=== PATIENT | female | born 1985 | race Caucasian/White ===

== ENCOUNTER 2022-06-20 17:32 | Emergency (ER) | payer OTHER ==
[~2022-06-20] VITALS: Ht 165.1 cm; Wt 83.9 kg
[2022-06-20] MEDS ORDERED: LASIX20 MG PO (21:15)
[2022-06-20] MEDS ORDERED: ALDACTONE25 MG PO (21:15)
== END 2022-06-20 23:50 | disposition home or self-care (01) ==
LOC: ED 17:32
DX: S80.01XA Contusion of right knee, initial encounter (principal); Z88.5 Allergy status to narcotic agent; Z91.040 Latex allergy status; W01.0XXA Fall on same level from slipping, tripping and stumbling without subsequent striking against object, initial encounter; Y99.0 Civilian activity done for income or pay
CPT/HCPCS: 73560; 99283-25

== ENCOUNTER 2023-10-31 20:42 | Emergency (ER) | payer OTHER ==
[~2023-10-31] VITALS: Ht 165.1 cm; Wt 97.3 kg
[~2023-10-31 20:42] MED LIST: ALDACTONE25 MG PO; LASIX20 MG PO
[2023-10-31] MEDS ORDERED: [UNRECOGNIZED DRUG - OTHER] PO ONE (21:15)
[2023-10-31 21:17] VITALS: BP 113/77
[2023-11-02 08:50] LABS: HIV 1,2 COMBO ANTIGEN/ANTIBODY Negative (Negative)
[2023-11-02 09:26] LABS: HEPATITIS B SURFACE ANTIBODY 6.17 IU/L (())
[2023-11-02 11:26] LABS: HEPATITIS C AB CIA INTERP Negative (Negative); HEPATITIS C ANTIBODY CIA INDEX 0.04 IV (())
== END 2023-10-31 21:23 | disposition home or self-care (01) ==
LOC: ED 20:42
PROVIDERS: Family Medicine
DX: S69.81XA Other specified injuries of right wrist, hand and finger(s), initial encounter (principal); W46.0XXA Contact with hypodermic needle, initial encounter; Z77.21 Contact with and (suspected) exposure to potentially hazardous body fluids; Z88.5 Allergy status to narcotic agent; Z91.040 Latex allergy status; Z79.899 Other long term (current) drug therapy
CPT/HCPCS: 36415; 84460; 86706; 86803; 99283

== ENCOUNTER 2024-10-27 13:57 | Emergency (ER) | payer OTHER ==
[~2024-10-27] VITALS: Ht 165.1 cm; Wt 86.7 kg
[2024-10-27 14:33] VITALS: BP 127/81
[2024-10-29 08:31] LABS: HEPATITIS B SURFACE ANTIBODY 7.64 IU/L (())
[2024-10-29 10:11] LABS: HEPATITIS C AB CIA INTERP Negative (Negative); HEPATITIS C ANTIBODY CIA INDEX 0.10 IV (())
[2024-10-29 10:54] LABS: HIV 1,2 COMBO ANTIGEN/ANTIBODY Negative (Negative)
== END 2024-10-27 14:34 | disposition home or self-care (01) ==
LOC: ED 13:57
PROVIDERS: Emergency Medicine
DX: Z09 Encounter for follow-up examination after completed treatment for conditions other than malignant neoplasm (principal); Z87.828 Personal history of other (healed) physical injury and trauma; Z90.49 Acquired absence of other specified parts of digestive tract; Z90.710 Acquired absence of both cervix and uterus; Z98.84 Bariatric surgery status; Z88.5 Allergy status to narcotic agent; Z91.040 Latex allergy status
CPT/HCPCS: 36415; 84460; 86706; 86803; 99283